=== PATIENT | female | born 1980 | race Caucasian/White ===

== ENCOUNTER → 2019-06-29 | Outpatient (CLI) | payer OTHER ==
--- NOTE | 2019-06-29 17:45 | XR ---
PROCEDURE: XR lumbar spine 3V DATE AND TIME: 06/29/2019 5:11 PM CLINICAL INDICATION: [facility]; S30.0XXA S20.229A; pain after fall TECHNIQUE: Department protocol COMPARISON: None FINDINGS: There is no definite fracture or malalignment. The soft tissues are unremarkable. IMPRESSION: No definite acute process.
--- NOTE | 2019-06-29 17:47 | XR ---
PROCEDURE: XR thoracic spine complete - 3V DATE AND TIME: 06/29/2019 5:11 PM CLINICAL INDICATION: [facility]; S30.0XXA S20.229A pain after fall TECHNIQUE: Department protocol COMPARISON: None FINDINGS: There is no definite fracture or malalignment. The soft tissues are unremarkable. IMPRESSION: No definite acute process.
== END | disposition home or self-care (01) ==
LOC: RADXRMAIN 16:54
PROVIDERS: ATTEND Emergency Medicine
DX: S30.0XXA Contusion of lower back and pelvis, initial encounter (principal); S20.229A Contusion of unspecified back wall of thorax, initial encounter
CPT/HCPCS: 72072; 72100

== ENCOUNTER → 2020-05-19 | Outpatient (CLI) | payer BC ==
--- NOTE | 2020-05-29 08:53 | MM ---
Reason for exam: screening (asymptomatic). Last mammogram was performed 6 years and 5 months ago. History: Family history of breast cancer in maternal aunt at age 40 and breast cancer in maternal aunt at age 50. Physical Findings: A clinical breast exam by your physician is recommended on an annual basis and results should be correlated with mammographic findings. MG 3D Screening Mammo W/Cad Bilateral CC and MLO view(s) were taken. Prior study comparison: December 29, 2013, mammogram, performed at [facility]. December 24, 2013, mammogram, performed at [facility]. The breast tissue is heterogeneously dense. This may lower the sensitivity of mammography. Increased fibroglandular tissue density versus 2013. ASSESSMENT: Negative, BI-RAD 1 RECOMMENDATION: Routine screening mammogram of both breasts in 1 year.
== END | disposition home or self-care (01) ==
LOC: RADMAMWWP 08:19
PROVIDERS: ATTEND Obstetrics & Gynecology
DX: Z12.31 Encounter for screening mammogram for malignant neoplasm of breast (principal); Z80.3 Family history of malignant neoplasm of breast
CPT/HCPCS: 77063; 77067

== ENCOUNTER → 2024-02-24 | Outpatient (CLI) | payer BC ==
--- NOTE | 2024-03-04 06:56 | MM ---
Reason for Exam: Screening (asymptomatic). Last mammogram was performed 1 year(s) and 4 month(s) ago. Patient History: Menarche at age 10. First Full-Term at age 26. Premenopausal. Maternal aunt had breast cancer, age 40. Maternal aunt had breast cancer, age 50. Last menstrual period: 01/24/2024 Risk Values: Kaye 5 year model risk: 0.9%. NCI Lifetime model risk: 10.6%. Prior Study Comparison: 05/19/2020 Bilateral Screening Mammogram, [facility]. 10/17/2022 Bilateral MG screening mammo w CAD, [facility]. 10/22/2022 Bilateral MG work up mamm w CAD BIL, [facility]. Tissue Density: The breasts are heterogeneously dense, which may obscure small masses. Findings: Analyzed By CAD. The pattern is symmetrical. No significant interval change. No suspicious groups of microcalcifications, spiculated or lobular masses, architectural distortion or other secondary signs of malignancy are mammographically apparent. Overall Assessment: Benign, BI-RAD 2 Management: Screening Mammogram of both breasts in 1 year. A negative mammogram report should not preclude additional follow up of suspicious palpable abnormalities. Patient should continue monthly self breast exam. A clinical breast exam by your physician is recommended on an annual basis and results should be correlated with mammographic findings. Note on Kaye scores and lifetime risk: 1. A Kaye score greater than 3% is considered moderate risk. If this is the case, consider specialist referral to assess eligibility for a risk reducing agent. 2. If overall lifetime risk for the development of breast cancer is 20% or higher, the patient may qualify for future screening with alternating mammogram and breast MRI. Electronically signed and approved by: Maikol Fried D.O. Radiologis
== END | disposition home or self-care (01) ==
LOC: RADMAMWWP 07:44
PROVIDERS: ATTEND Obstetrics & Gynecology
DX: Z12.31 Encounter for screening mammogram for malignant neoplasm of breast (principal); Z80.3 Family history of malignant neoplasm of breast
CPT/HCPCS: 77063; 77067

== ENCOUNTER → 2025-03-10 | Outpatient (CLI) | payer BC ==
--- NOTE | 2025-03-10 08:12 | MM ---
Reason for Exam: Screening (asymptomatic). Last screening mammogram was performed 12 month(s) ago. Patient History: Menarche at age 10. First Full-Term at age 26. Premenopausal. Hormonal Contraceptives for 5 years from age 16 until age 21. Maternal aunt had breast cancer, age 40. Maternal aunt had breast cancer, age 50. Risk Values: Kaye 5 year model risk: 0.9%. NCI Lifetime model risk: 10.5%. Prior Study Comparison: 10/17/2022 Bilateral MG screening mammo w CAD, [facility]. 10/22/2022 Bilateral MG work up mamm w CAD BILAT, [facility]. 02/24/2024 Bilateral MG 3D screening mammo w/cad, [facility]. Tissue Density: The breasts are heterogeneously dense, which may obscure small masses. Findings: Analyzed By CAD. Right breast: There is no suspicious group of microcalcifications or new suspicious mass. Left breast: There is no suspicious group of microcalcifications or new suspicious mass. Overall Assessment: Negative, BI-RAD 1 Management: Screening Mammogram of both breasts in [address] [facility] will attempt to contact patient to return for supplemental views and ultrasound if indicated. Patient should continue monthly self-breast exams. A clinical breast exam by your physician is recommended on an annual basis. This exam should not preclude additional follow-up of suspicious palpable abnormalities. Note on Kaye scores and lifetime risk: 1. A Kaye score greater than 3% is considered moderate risk. If this is the case, consider specialist referral to assess eligibility for a risk reducing agent. 2. If overall lifetime risk for the development of breast cancer is 20% or higher, the patient may qualify for future screening with alternating mammogram and breast MRI. [facility], , 03/10/2025 8:09 AM. Electronically signed and approved by: Mehran Spann DO
== END | disposition home or self-care (01) ==
LOC: RADMAMWWP 07:13
PROVIDERS: ATTEND Obstetrics & Gynecology
DX: Z12.31 Encounter for screening mammogram for malignant neoplasm of breast (principal); R92.333 Mammographic heterogeneous density, bilateral breasts; Z80.3 Family history of malignant neoplasm of breast; Z92.0 Personal history of contraception
CPT/HCPCS: 77063; 77067